=== PATIENT | male | born 1960 | race Caucasian/White ===

== ENCOUNTER 2021-02-25 12:04 | Emergency (ER) | payer OTHER ==
[2021-02-25 12:23] VITALS: BP 134/84; PULSE 80; TEMP 98.9; BMI 19.8
== END 2021-02-25 12:36 | disposition home or self-care (01) ==
LOC: FER 12:04
DX: H57.12 Ocular pain, left eye (principal)
CPT/HCPCS: 99284-25

== ENCOUNTER 2021-03-11 14:16 | Emergency (ER) | payer OTHER ==
[2021-03-11 14:31] VITALS: BP 118/76; PULSE 77; TEMP 98.6; BMI 19.8
[2021-03-11] MEDS ORDERED: TETRACAINE 0.5% OPHTH SOLN 2 ML BOTTLE ONE (15:00)
[2021-03-11] MEDS ORDERED: FLUORESCEIN NA 1 EA STRIP ONE (15:00)
[2021-03-11] MEDS ORDERED: TETRACAINE 0.5% HCL 0.6ML DROPPER.BOTTLE OD ONE (15:20)
[2021-03-11] MEDS ORDERED: FLUORESCEIN NA 1 EA STRIP OD ONE (15:20)
== END 2021-03-11 15:25 | disposition home or self-care (01) ==
LOC: FER 14:16
DX: H10.31 Unspecified acute conjunctivitis, right eye (principal)
CPT/HCPCS: 99283-25

== ENCOUNTER 2021-03-31 17:35 | Emergency (ER) | payer OTHER ==
[2021-03-31 17:48] VITALS: BP 122/71; PULSE 96; TEMP 99; BMI 19.8
[2021-03-31] MEDS ORDERED: ACETAMINOPHEN 500 MG TABLET (FP) PO ONE (18:07)
[2021-03-31] MEDS ORDERED: ONDANSETRON 4 MG TABLET PO PRN (18:07)
[2021-03-31] MEDS ORDERED: FAMOTIDINE 40 MG/5 ML ORAL SUSPENSION PO ONE (18:08)
[2021-03-31] MEDS ORDERED: ONDANSETRON 4 MG TABLET PO ONE (18:10)
[2021-03-31] MEDS ORDERED: ONDANSETRON *ODT* 4 MG TABLET ONE (18:11)
[2021-03-31] MEDS ORDERED: FAMOTIDINE 20 MG TABLET ONE (18:11)
[2021-03-31] MEDS ORDERED: ACETAMINOPHEN 325 MG TABLET (FP) ONE (18:11)
[2021-03-31] MEDS ORDERED: LORATADINE 10 MG TABLET ONE (18:16)
[2021-03-31] MEDS ORDERED: LORATADINE 10 MG TABLET PO ONE (18:16)
== END 2021-03-31 18:50 | disposition home or self-care (01) ==
LOC: FER 17:35
DX: J30.2 Other seasonal allergic rhinitis (principal); M79.10 Myalgia, unspecified site
CPT/HCPCS: 99284-25

== ENCOUNTER 2021-04-25 16:42 | Emergency (ER) | payer OTHER ==
[2021-04-25 17:01] VITALS: BP 110/71; PULSE 88; TEMP 99.1; BMI 19.8
[2021-04-25] MEDS ORDERED: predniSONE 20 MG TABLET (UD) PO ONE (17:04)
[2021-04-25] MEDS ORDERED: predniSONE 20 MG TABLET (UD) ONE (17:09)
== END 2021-04-25 17:18 | disposition home or self-care (01) ==
LOC: FER 16:42
DX: R21 Rash and other nonspecific skin eruption (principal); L23.7 Allergic contact dermatitis due to plants, except food
CPT/HCPCS: 99283-25

== ENCOUNTER 2021-05-31 10:41 | Emergency (ER) | payer OTHER ==
[2021-05-31 10:56] VITALS: BP 125/82; PULSE 82; TEMP 97.9; BMI 19.8
[2021-05-31] MEDS ORDERED: ACETAMINOPHEN 500 MG TABLET (FP) PO ONE (11:06)
[2021-05-31] MEDS ORDERED: ACETAMINOPHEN 325 MG TABLET (FP) ONE (11:09)
[2021-05-31] MEDS ORDERED: LIDOCAINE 5% TOPICAL PATCH TP ONE (12:06)
[2021-05-31] MEDS ORDERED: LIDOCAINE 5% TOPICAL PATCH ONE (12:09)
[2021-05-31] MEDS ORDERED: LIDOCAINE PATCH REMOVAL MC SCH (22:00)
== END 2021-05-31 12:18 | disposition home or self-care (01) ==
LOC: FER 10:41
DX: M54.2 Cervicalgia (principal)
CPT/HCPCS: 99283-25

== ENCOUNTER 2021-06-14 09:15 | Emergency (ER) | payer OTHER ==
[2021-06-14 09:28] VITALS: BP 137/84; PULSE 89; TEMP 98.1; BMI 19.8
[2021-06-14] MEDS ORDERED: chlordiazePOXIDE HCL 25 MG CAPSULE PO ONE (09:37)
[2021-06-14] MEDS ORDERED: chlordiazePOXIDE HCL 25 MG CAPSULE ONE (09:49)
== END 2021-06-14 10:42 | disposition home or self-care (01) ==
LOC: FER 09:15
DX: F13.239 Sedative, hypnotic or anxiolytic dependence with withdrawal, unspecified (principal)
CPT/HCPCS: 99283-25

== ENCOUNTER 2021-07-15 10:35 | Emergency (ER) | payer OTHER ==
[2021-07-15 10:41] VITALS: BP 125/87; PULSE 90; TEMP 98; BMI 19.8
[2021-07-15] MEDS ORDERED: LORazepam 2 MG TABLET PO ONE (10:54)
== END 2021-07-15 11:35 | disposition home or self-care (01) ==
LOC: FER 10:35
DX: R25.1 Tremor, unspecified (principal); Z76.0 Encounter for issue of repeat prescription
CPT/HCPCS: 99281-25

== ENCOUNTER 2021-08-02 11:35 | Emergency (ER) | payer OTHER ==
[2021-08-02 11:42] VITALS: TEMP 98; BMI 20.3
[2021-08-02] MEDS ORDERED: ONDANSETRON *ODT* 4 MG TABLET SL ONE (12:14)
[2021-08-02] MEDS ORDERED: ONDANSETRON *ODT* 4 MG TABLET ONE (12:17)
[2021-08-02 14:09] VITALS: BP 149/67; PULSE 74
== END 2021-08-02 14:09 | disposition home or self-care (01) ==
LOC: FER 11:35
DX: R11.0 Nausea (principal); T50.995A Adverse effect of other drugs, medicaments and biological substances, initial encounter
CPT/HCPCS: 93005; 99283-25; Q0162

== ENCOUNTER 2021-08-14 09:22 | Emergency (ER) | payer OTHER ==
[2021-08-14 09:25] VITALS: TEMP 98.1; BMI 20.3
[2021-08-14] MEDS ORDERED: LORazepam 2 MG TABLET PO ONE (09:44)
[2021-08-14] MEDS ORDERED: LORazepam 0.5 MG TABLET ONE (09:47)
[2021-08-14] MEDS ORDERED: LOCK ITEM NR ONE (09:50)
[2021-08-14 09:56] VITALS: BP 144/92; PULSE 80
== END 2021-08-14 09:56 | disposition home or self-care (01) ==
LOC: FER 09:22
DX: F13.239 Sedative, hypnotic or anxiolytic dependence with withdrawal, unspecified (principal)
CPT/HCPCS: 99283-25

== ENCOUNTER 2021-08-15 09:16 | Emergency (ER) | payer OTHER ==
[2021-08-15 09:25] VITALS: BP 140/89; PULSE 96; TEMP 98.1; BMI 20.3
[2021-08-15] MEDS ORDERED: LORazepam 2 MG TABLET PO ONE (09:57)
[2021-08-15] MEDS ORDERED: LORazepam 0.5 MG TABLET ONE (10:04)
== END 2021-08-15 10:13 | disposition home or self-care (01) ==
LOC: FER 09:16
DX: R25.1 Tremor, unspecified (principal); F13.239 Sedative, hypnotic or anxiolytic dependence with withdrawal, unspecified
CPT/HCPCS: 99283-25

== ENCOUNTER 2021-09-01 15:38 | Emergency (ER) | payer OTHER ==
[2021-09-01 15:51] VITALS: BP 129/87; PULSE 91; TEMP 98.8; BMI 20.3
[2021-09-01] MEDS ORDERED: METHOCARBAMOL 500 MG TABLET PO ONE (16:28)
[2021-09-01] MEDS ORDERED: LIDOCAINE 5% TOPICAL PATCH TP ONE (16:28)
[2021-09-01] MEDS ORDERED: LIDOCAINE 5% TOPICAL PATCH ONE (16:34)
[2021-09-01] MEDS ORDERED: METHOCARBAMOL 500 MG TABLET ONE (16:34)
[2021-09-01] MEDS ORDERED: LIDOCAINE PATCH REMOVAL MC SCH (22:00)
== END 2021-09-01 16:52 | disposition home or self-care (01) ==
LOC: FER 15:38
DX: M54.2 Cervicalgia (principal)
CPT/HCPCS: 99283-25

== ENCOUNTER 2021-09-16 08:47 | Emergency (ER) | payer OTHER ==
[2021-09-16] MEDS ORDERED: LORazepam 2 MG TABLET PO ONE (08:51)
[2021-09-16 08:59] VITALS: BP 142/94; PULSE 72; TEMP 98.1; BMI 20.3
[2021-09-16] MEDS ORDERED: LORazepam 0.5 MG TABLET ONE (09:06)
== END 2021-09-16 09:09 | disposition home or self-care (01) ==
LOC: FER 08:47
DX: F13.20 Sedative, hypnotic or anxiolytic dependence, uncomplicated (principal)
CPT/HCPCS: 99283-25

== ENCOUNTER 2021-09-18 07:55 | Emergency (ER) | payer OTHER ==
[2021-09-18 07:59] VITALS: BP 140/87; PULSE 89; TEMP 97.6; BMI 20.3
[2021-09-18] MEDS ORDERED: LORazepam 1 MG TABLET PO ONE (08:09)
[2021-09-18] MEDS ORDERED: LORazepam 0.5 MG TABLET ONE (08:10)
== END 2021-09-18 08:50 | disposition home or self-care (01) ==
LOC: FER 07:55
DX: F13.239 Sedative, hypnotic or anxiolytic dependence with withdrawal, unspecified (principal); R11.0 Nausea; R25.1 Tremor, unspecified
CPT/HCPCS: 99283-25

== ENCOUNTER 2021-09-26 11:06 | Emergency (ER) | payer OTHER ==
[2021-09-26 11:22] VITALS: BP 127/89; PULSE 63; TEMP 97.9; BMI 19.8
[2021-09-26] MEDS ORDERED: CIPROFLOXACIN HCL 0.3% OPHTH 2.5ML BOTTLE ONE (11:23)
[2021-09-26] MEDS ORDERED: CIPROFLOXACIN HCL 0.3% OPHTH 2.5ML BOTTLE OS SCH (11:30)
== END 2021-09-26 11:38 | disposition home or self-care (01) ==
LOC: FER 11:06
DX: H10.32 Unspecified acute conjunctivitis, left eye (principal)
CPT/HCPCS: 99283-25

== ENCOUNTER 2021-10-05 09:57 | Emergency (ER) | payer OTHER ==
[2021-10-05] MEDS ORDERED: IBUPROFEN 600 MG TABLET (FP) PO ONE ×2 (10:05→10:08)
[2021-10-05 10:08] VITALS: BP 140/88; PULSE 85; TEMP 97.8; BMI 19.8
== END 2021-10-05 10:56 | disposition home or self-care (01) ==
LOC: FER 09:57
DX: M79.644 Pain in right finger(s) (principal)
CPT/HCPCS: 73130-TC-RT-FY; 99283-25

== ENCOUNTER 2021-10-20 17:15 | Emergency (ER) | payer OTHER ==
[2021-10-20 17:49] VITALS: BP 150/89; PULSE 74; TEMP 98.9; BMI 19.8
[2021-10-20] MEDS ORDERED: LORazepam 2 MG TABLET PO ONE (17:58)
[2021-10-20] MEDS ORDERED: LORazepam 0.5 MG TABLET ONE (18:13)
== END 2021-10-20 18:22 | disposition home or self-care (01) ==
LOC: FER 17:15
DX: G25.2 Other specified forms of tremor (principal); F41.9 Anxiety disorder, unspecified
CPT/HCPCS: 99283-25

== ENCOUNTER 2021-11-20 10:33 | Emergency (ER) | payer OTHER ==
[2021-11-20 10:59] VITALS: BP 130/71; PULSE 77; TEMP 98.3; BMI 19.8
[2021-11-20] MEDS ORDERED: TETRACAINE 0.5% HCL 0.6ML DROPPER.BOTTLE OU ONE (11:12)
[2021-11-20] MEDS ORDERED: TETRACAINE 0.5% OPHTH SOLN 2 ML BOTTLE ONE (11:15)
[2021-11-20] MEDS ORDERED: FLUORESCEIN NA 1 EA STRIP ONE (11:15)
== END 2021-11-20 11:54 | disposition home or self-care (01) ==
LOC: FER 10:33
DX: S05.02XA Injury of conjunctiva and corneal abrasion without foreign body, left eye, initial encounter (principal); H04.129 Dry eye syndrome of unspecified lacrimal gland; Y99.9 Unspecified external cause status
CPT/HCPCS: 99283-25

== ENCOUNTER 2021-12-29 09:37 | Emergency (ER) | payer OTHER ==
[2021-12-29 09:54] VITALS: BP 130/75; PULSE 87; TEMP 99.1; BMI 19.8
[2021-12-29] MEDS ORDERED: FAMOTIDINE 20 MG/50 ML IVPB 20 MG in PREMIX 50 IVPB ONE (10:00)
[2021-12-29] MEDS ORDERED: SODIUM CHLORIDE 0.9% 500 ML INFUS.BAG IV ONE (10:00)
[2021-12-29] MEDS ORDERED: ONDANSETRON 4 MG/2 ML VIAL IVPB ONE (10:00)
[2021-12-29] MEDS ORDERED: MAG HYDROX/AL HYDROX/SIMETH -MYLANTA- ORAL SUSPENSION PO ONE (10:00)
[2021-12-29] MEDS ORDERED: MAG HYDROX/AL HYDROX/SIMETH 30 ML UNIT-DOSE CUP ONE (10:04)
[2021-12-29] MEDS ORDERED: ONDANSETRON 4 MG/2 ML VIAL ONE (10:04)
[2021-12-29] MEDS ORDERED: FAMOTIDINE 20 MG/50 ML IVPB 20 MG/50 ML MG IVPB ONE (10:04)
[2021-12-29 10:51] LABS: ALBUMIN 4.1 g/dl (3.4-5.0); BILIRUBIN,TOTAL 2.3 mg/dl (0.2-1); CALCIUM 9.8 mg/dl (8.5-10); CREATININE 1.2 mg/dl (0.55-1.3); TOT PROT 7.1 g/dl (6.4-8.2)
[2021-12-29 11:51] LABS: HEMATOCRIT 43.6 % (35.4-49); HEMOGLOBIN 14.4 GM/dL (11.7-16.9); MCH 29.2 pg (25.7-33.7); MCHC 33.1 g/dl (32.0-35.9); MEAN CELL VOLUME 88.1 fl (80-96); MEAN PLT VOLUME 9.2 fl (7.5-11.1); PLATELET COUNT 177 10^3/uL (134-434); RBC 4.94 M/mm3 (4.00-5.60); RDW 14.6 % (11.9-15.9); WHITE BLOOD COUNT 7.4 K/mm3 (4.0-10.0)
== END 2021-12-29 12:46 | disposition home or self-care (01) ==
LOC: FER 09:37
PROC: 3E033NZ Introduction of Analgesics, Hypnotics, Sedatives into Peripheral Vein, Percutaneous Approach (ICD-10-PCS; principal; 2021-12-29)
PROC: 3E033GC Introduction of Other Therapeutic Substance into Peripheral Vein, Percutaneous Approach (ICD-10-PCS; 2021-12-29)
DX: R10.13 Epigastric pain (principal)
CPT/HCPCS: 36415; 71046-TC-FY; 80053; 81003; 83690; 84484; 85027; 93005; 96365; 96375; 99284-25

== ENCOUNTER 2022-01-18 08:38 | Emergency (ER) | payer OTHER ==
[2022-01-18] MEDS ORDERED: LORazepam 2 MG TABLET PO ONE (08:49)
[2022-01-18] MEDS ORDERED: LORazepam 0.5 MG TABLET ONE (08:50)
== END 2022-01-18 09:27 | disposition home or self-care (01) ==
LOC: FER 08:38
DX: R11.0 Nausea (principal); F13.239 Sedative, hypnotic or anxiolytic dependence with withdrawal, unspecified
CPT/HCPCS: 99281-25

== ENCOUNTER 2022-01-24 09:27 | Emergency (ER) | payer OTHER ==
[2022-01-24 09:43] VITALS: BP 143/79; PULSE 86; TEMP 98.6; BMI 19.8
[2022-01-24] MEDS ORDERED: LORATADINE 10 MG TABLET PO ONE (10:33)
[2022-01-24] MEDS ORDERED: FLUTICASONE PROP 0.05% 16 GM NASAL SPRAY NS ONE (10:34)
[2022-01-24] MEDS ORDERED: IBUPROFEN 400 MG TABLET (FP) PO ONE ×2 (10:34→10:55)
[2022-01-24] MEDS ORDERED: LORATADINE 10 MG TABLET ONE (10:55)
[2022-01-25 12:08] LABS: SARS-CoV-2 NAA Not Detected (Not Detected)
== END 2022-01-24 11:10 | disposition home or self-care (01) ==
LOC: FER 09:27
DX: R09.81 Nasal congestion (principal); R09.82 Postnasal drip
CPT/HCPCS: 71046-TC-FY; 99284-25; C9803; U0003; U0005

== ENCOUNTER 2022-02-08 16:00 | Emergency (ER) | payer OTHER ==
[2022-02-08 16:20] VITALS: TEMP 98.1; BMI 18.8
[2022-02-08] MEDS ORDERED: INDOMETHACIN 50 MG CAPSULE PO ONE (16:29)
[2022-02-08] MEDS ORDERED: INDOMETHACIN 25 MG CAPSULE ONE (16:41)
[2022-02-08 17:11] LABS: CALCIUM 9.9 mg/dl (8.5-10); CREATININE 1.2 mg/dl (0.55-1.3); URIC ACID 7.6 mg/dl (2.6-7.2)
[2022-02-08] MEDS ORDERED: CLINDAMYCIN 600MG PREMIX IVPB 600 MG/50 ML BAG IVPB ONE ×2 (17:36→17:42)
[2022-02-08] MEDS ORDERED: MAG HYDROX/AL HYDROX/SIMETH 30 ML UNIT-DOSE CUP PO ONE ×2 (17:48)
[2022-02-08] MEDS ORDERED: FAMOTIDINE 10 MG TABLET PO ONE (17:48)
[2022-02-08] MEDS ORDERED: MAG HYDROX/AL HYDROX/SIMETH 30 ML UNIT-DOSE CUP ONE (17:49)
[2022-02-08] MEDS ORDERED: FAMOTIDINE 20 MG TABLET ONE (17:49)
[2022-02-08] MEDS ORDERED: MAGNESIUM SULF 50% (8.12 MEQ/2 ML-1 GM VIAL) IVPB ONE (17:52)
[2022-02-08 18:07] LABS: ERYTHROCYTE SEDIMENTATION RATE 18 mm/hr (0-20)
[2022-02-08] MEDS ORDERED: MAGNESIUM 1GM/D5W - 1 GM/100 ML IVPB IVPB ONE (18:21)
[2022-02-08 18:31] VITALS: BP 130/88; PULSE 78
[2022-02-08 19:20] LABS: BASO % 0.8 % (0-2.0); EOS % 0.7 % (0-4.5); HEMATOCRIT 36.9 % (35.4-49); HEMOGLOBIN 12.8 GM/dL (11.7-16.9); LYMPH % 17.7 % (8-40); MCH 30.4 pg (25.7-33.7); MCHC 34.8 g/dl (32.0-35.9); MEAN CELL VOLUME 87.6 fl (80-96); MEAN PLT VOLUME 8.1 fl (7.5-11.1); MONO % 5.5 % (3.8-10.2); NEUT % 75.3 % (42.8-82.8); PLATELET COUNT 190 10^3/uL (134-434); RBC 4.22 M/mm3 (4.00-5.60); WHITE BLOOD COUNT 7.9 K/mm3 (4.0-10.0)
== END 2022-02-08 19:26 | disposition home or self-care (01) ==
LOC: FER 16:00
PROC: 3E03329 Introduction of Other Anti-infective into Peripheral Vein, Percutaneous Approach (ICD-10-PCS; principal; 2022-02-08)
PROC: 3E033GC Introduction of Other Therapeutic Substance into Peripheral Vein, Percutaneous Approach (ICD-10-PCS; 2022-02-08)
DX: L03.116 Cellulitis of left lower limb (principal); S90.32XA Contusion of left foot, initial encounter; W22.8XXA Striking against or struck by other objects, initial encounter
CPT/HCPCS: 36415; 73610-TC-LT-FY; 73630-TC-LT; 80048; 84550; 85025; 85651; 86140; 99284-25

== ENCOUNTER 2022-03-07 17:29 | Emergency (ER) | payer OTHER ==
[2022-03-07 17:43] VITALS: BP 128/92; PULSE 85; TEMP 98.6
== END 2022-03-07 18:09 | disposition home or self-care (01) ==
LOC: FER 17:29
DX: H11.31 Conjunctival hemorrhage, right eye (principal)
CPT/HCPCS: 99281-25

== ENCOUNTER 2022-03-21 16:30 | Emergency (ER) | payer OTHER ==
[2022-03-21] MEDS ORDERED: predniSONE 20 MG TABLET (UD) PO ONE (16:55)
[2022-03-21] MEDS ORDERED: DIPHTH,PERTUSS(ACELL),TET 0.5 ML DISP.SYRIN IM ONE (16:56)
[2022-03-21] MEDS ORDERED: predniSONE 20 MG TABLET (UD) ONE (16:58)
[2022-03-21 17:01] VITALS: BP 126/67; PULSE 77; TEMP 98.7; BMI 16.4
== END 2022-03-21 17:07 | disposition home or self-care (01) ==
LOC: FER 16:30
PROC: 3E0234Z Introduction of Serum, Toxoid and Vaccine into Muscle, Percutaneous Approach (ICD-10-PCS; principal; 2022-03-21)
DX: R21 Rash and other nonspecific skin eruption (principal)
CPT/HCPCS: 99284-25

== ENCOUNTER 2022-03-25 14:15 | Emergency (ER) | payer OTHER ==
[2022-03-25 14:35] VITALS: BP 122/72; PULSE 84; TEMP 99.1; BMI 16.4
== END 2022-03-25 15:33 | disposition home or self-care (01) ==
LOC: FER 14:15
DX: L23.7 Allergic contact dermatitis due to plants, except food (principal); L73.1 Pseudofolliculitis barbae
CPT/HCPCS: 81003; 81015; 99283-25

== ENCOUNTER 2022-04-17 16:16 | Emergency (ER) | payer OTHER ==
[2022-04-17 16:34] VITALS: BP 135/82; PULSE 79; TEMP 98; BMI 19.8
[2022-04-17] MEDS ORDERED: LORazepam 1 MG TABLET PO ONE (16:35)
[2022-04-17] MEDS ORDERED: LORazepam 0.5 MG TABLET ONE (17:05)
[2022-04-17] MEDS ORDERED: ACETAMINOPHEN 325 MG TABLET (FP) PO ONE (17:13)
[2022-04-17] MEDS ORDERED: ACETAMINOPHEN 325 MG TABLET (FP) ONE (17:18)
== END 2022-04-17 17:23 | disposition home or self-care (01) ==
LOC: FER 16:16
DX: F13.20 Sedative, hypnotic or anxiolytic dependence, uncomplicated (principal)
CPT/HCPCS: 99283-25

== ENCOUNTER 2022-04-22 09:56 | Emergency (ER) | payer OTHER ==
[2022-04-22] MEDS ORDERED: LORazepam 2 MG TABLET PO ONE (10:09)
[2022-04-22] MEDS ORDERED: ACETAMINOPHEN 500 MG TABLET (FP) PO ONE (10:09)
[2022-04-22] MEDS ORDERED: LORazepam 0.5 MG TABLET ONE (10:13)
[2022-04-22] MEDS ORDERED: ACETAMINOPHEN 500 MG TABLET (FP) ONE (10:14)
[2022-04-22 10:24] VITALS: BP 135/84; PULSE 80; TEMP 98.8; BMI 19.8
== END 2022-04-22 10:23 | disposition home or self-care (01) ==
LOC: FER 09:56
DX: R25.1 Tremor, unspecified (principal); Z76.0 Encounter for issue of repeat prescription
CPT/HCPCS: 99282-25

== ENCOUNTER 2022-05-21 11:11 | Emergency (ER) | payer OTHER ==
[2022-05-21 12:09] VITALS: BP 139/88; PULSE 88; TEMP 98.7; BMI 19.8
[2022-05-21] MEDS ORDERED: INDOMETHACIN 50 MG CAPSULE PO ONE (12:22)
[2022-05-21] MEDS ORDERED: INDOMETHACIN 25 MG CAPSULE ONE (12:27)
== END 2022-05-21 12:45 | disposition home or self-care (01) ==
LOC: FER 11:11
DX: M10.041 Idiopathic gout, right hand (principal)
CPT/HCPCS: 99283-25

== ENCOUNTER 2022-06-04 09:36 | Emergency (ER) | payer OTHER ==
[2022-06-04 10:04] VITALS: BP 141/93; PULSE 77; RESP 20; TEMP 98.2; BMI 19.8
== END 2022-06-04 10:46 | disposition home or self-care (01) ==
LOC: FER 09:36
DX: L74.0 Miliaria rubra (principal)
CPT/HCPCS: 99281-25

== ENCOUNTER 2022-06-05 15:51 | Emergency (ER) | payer OTHER ==
[2022-06-05] MEDS ORDERED: LORATADINE 10 MG TABLET PO ONE (16:06)
[2022-06-05] MEDS ORDERED: IBUPROFEN 600 MG TABLET (FP) PO ONE ×2 (16:06→16:12)
[2022-06-05] MEDS ORDERED: DEXAMETHASONE 4 MG TABLET (FP) PO ONE (16:06)
[2022-06-05 16:10] VITALS: BP 144/97; PULSE 79; RESP 16; TEMP 98; BMI 19.8
[2022-06-05] MEDS ORDERED: DEXAMETHASONE 4 MG TABLET (FP) ONE (16:13)
[2022-06-05] MEDS ORDERED: LORATADINE 10 MG TABLET ONE (16:13)
== END 2022-06-05 16:34 | disposition home or self-care (01) ==
LOC: FER 15:51
DX: T63.441A Toxic effect of venom of bees, accidental (unintentional), initial encounter (principal)
CPT/HCPCS: 99283-25

== ENCOUNTER 2022-06-10 10:07 | Emergency (ER) | payer OTHER ==
[2022-06-10 10:16] VITALS: BP 132/96; PULSE 87; RESP 18; TEMP 97.8; BMI 19.8
[2022-06-10] MEDS ORDERED: FLUORESCEIN NA 1 EA STRIP OD ONE (10:26)
[2022-06-10] MEDS ORDERED: TETRACAINE 0.5% OPHTH SOLN 2 ML BOTTLE OD ONE (10:27)
[2022-06-10] MEDS ORDERED: TETRACAINE 0.5% OPHTH SOLN 2 ML BOTTLE ONE (10:28)
[2022-06-10] MEDS ORDERED: FLUORESCEIN NA 1 EA STRIP ONE (10:28)
[2022-06-10] MEDS ORDERED: CIPROFLOXACIN 0.3% EYE DROPS 5 ML BOTTLE OS ONE (10:45)
[2022-06-10] MEDS ORDERED: CIPROFLOXACIN HCL 0.3% OPHTH 2.5ML BOTTLE ONE (10:46)
[2022-06-11] MEDS ORDERED: CIPROFLOXACIN 0.3% EYE DROPS 5 ML BOTTLE OS ONE (10:46)
== END 2022-06-10 10:53 | disposition home or self-care (01) ==
LOC: FER 10:07
DX: H57.89 Other specified disorders of eye and adnexa (principal)
CPT/HCPCS: 99283-25

== ENCOUNTER 2022-06-11 15:47 | Emergency (ER) | payer OTHER ==
[2022-06-11] MEDS ORDERED: TETRACAINE 0.5% OPHTH SOLN 2 ML BOTTLE ONE (15:49)
[2022-06-11 15:58] VITALS: BP 126/89; PULSE 79; RESP 16; TEMP 98.3; BMI 19.8
== END 2022-06-11 16:12 | disposition home or self-care (01) ==
LOC: FER 15:47
DX: Z00.00 Encounter for general adult medical examination without abnormal findings (principal)
CPT/HCPCS: 99281-25

== ENCOUNTER 2022-07-16 11:10 | Emergency (ER) | payer OTHER ==
[2022-07-16 11:30] VITALS: BP 136/78; PULSE 73; RESP 16; TEMP 98.3; BMI 19.8
== END 2022-07-16 12:08 | disposition home or self-care (01) ==
LOC: FER 11:10
DX: H57.89 Other specified disorders of eye and adnexa (principal)
CPT/HCPCS: 99283-25

== ENCOUNTER 2022-08-12 10:21 | Emergency (ER) | payer OTHER ==
[2022-08-12] MEDS ORDERED: PANTOPRAZOLE 20 MG TABLET PO ONE (10:42)
[2022-08-12 10:51] VITALS: BP 144/97; PULSE 86; RESP 16; TEMP 97.4; BMI 19.8
[2022-08-12] MEDS ORDERED: PANTOPRAZOLE 40 MG TABLET PO ONE ×2 (10:51)
[2022-08-12 14:02] LABS: THROAT:GRP A STREP NOT DETECTED (NOTDETECTED)
== END 2022-08-12 11:15 | disposition home or self-care (01) ==
LOC: FER 10:21 → SUPCPDRO 10:21 → FER 11:15
DX: J02.9 Acute pharyngitis, unspecified (principal); R09.81 Nasal congestion; R14.1 Gas pain
CPT/HCPCS: 0241U-QW; 87651; 99283-25

== ENCOUNTER 2022-09-05 15:38 | Emergency (ER) | payer OTHER ==
[2022-09-05 15:46] VITALS: BP 126/80; PULSE 77; RESP 20; TEMP 98.6; BMI 19.8
[2022-09-05] MEDS ORDERED: FLUORESCEIN NA 1 EA STRIP ONE (15:49)
[2022-09-05] MEDS ORDERED: TETRACAINE 0.5% OPHTH SOLN 2 ML BOTTLE ONE (15:49)
== END 2022-09-05 16:35 | disposition home or self-care (01) ==
LOC: FER 15:38
DX: B34.9 Viral infection, unspecified (principal)
CPT/HCPCS: 0241U-QW; 99283-25

== ENCOUNTER 2022-10-26 15:22 | Emergency (ER) | payer OTHER ==
[2022-10-26] MEDS ORDERED: TETRACAINE 0.5% OPHTH SOLN 2 ML BOTTLE ONE (15:33)
[2022-10-26] MEDS ORDERED: FLUORESCEIN NA 1 EA STRIP ONE (15:33)
[2022-10-26 15:34] VITALS: BP 133/88; PULSE 98; RESP 18; TEMP 97.8; BMI 20.3
[2022-10-26] MEDS ORDERED: MOXIFLOXACIN HCL 0.5% OPHTHALMIC 3 ML BOTTLE OS SCH (16:00)
== END 2022-10-26 16:22 | disposition home or self-care (01) ==
LOC: FER 15:22
DX: H16.002 Unspecified corneal ulcer, left eye (principal)
CPT/HCPCS: 99283-25

== ENCOUNTER 2022-11-02 11:36 | Emergency (ER) | payer OTHER ==
[2022-11-02 12:34] VITALS: BP 145/90; PULSE 62; RESP 18; TEMP 97.9; BMI 19.8
[2022-11-02] MEDS ORDERED: TETRACAINE 0.5% HCL 0.6ML DROPPER.BOTTLE OS ONE (12:56)
[2022-11-02] MEDS ORDERED: TETRACAINE 0.5% OPHTH SOLN 2 ML BOTTLE ONE (12:56)
[2022-11-02] MEDS ORDERED: FLUORESCEIN NA 1 EA STRIP ONE (12:56)
[2022-11-02] MEDS ORDERED: FLUORESCEIN NA 1 EA STRIP OS ONE (12:56)
== END 2022-11-02 13:33 | disposition home or self-care (01) ==
LOC: FER 11:36 → SUPCPDRO 11:36 → FER 13:33
DX: H53.142 Visual discomfort, left eye (principal)
CPT/HCPCS: 99283-25

== ENCOUNTER 2022-11-18 12:35 | Emergency (ER) | payer OTHER ==
[2022-11-18] MEDS ORDERED: FLUORESCEIN NA 1 EA STRIP OS ONE (12:47)
[2022-11-18] MEDS ORDERED: FLUORESCEIN NA 1 EA STRIP ONE (12:47)
[2022-11-18] MEDS ORDERED: TETRACAINE 0.5% OPHTH SOLN 2 ML BOTTLE ONE (12:47)
[2022-11-18 12:50] VITALS: BP 159/89; PULSE 79; RESP 16; TEMP 98.3; BMI 19.8
== END 2022-11-18 13:04 | disposition home or self-care (01) ==
LOC: FER 12:35
DX: H57.89 Other specified disorders of eye and adnexa (principal)
CPT/HCPCS: 99283-25

== ENCOUNTER 2023-01-02 09:51 | Emergency (ER) | payer OTHER ==
[2023-01-02 10:09] VITALS: BP 146/88; PULSE 84; RESP 20; TEMP 98.2; BMI 19.8
[2023-01-02] MEDS ORDERED: MAG HYDROX/AL HYDROX/SIMETH 30 ML UNIT-DOSE CUP PO ONE (10:31)
[2023-01-02] MEDS ORDERED: FAMOTIDINE 20 MG TABLET PO ONE (10:31)
[2023-01-02] MEDS ORDERED: SUCRALFATE 1 GM/10 ML UNIT DOSE CUPS PO ONE (10:31)
[2023-01-02] MEDS ORDERED: PANTOPRAZOLE 40 MG TABLET PO ONE ×2 (10:31→10:34)
[2023-01-02] MEDS ORDERED: FAMOTIDINE 20 MG TABLET ONE (10:34)
[2023-01-02] MEDS ORDERED: SUCRALFATE 1 GM/10 ML UNIT DOSE CUPS ONE (10:34)
[2023-01-02] MEDS ORDERED: MAG HYDROX/AL HYDROX/SIMETH 30 ML UNIT-DOSE CUP ONE (10:34)
== END 2023-01-02 11:42 | disposition home or self-care (01) ==
LOC: FER 09:51
DX: R10.13 Epigastric pain (principal)
CPT/HCPCS: 99283-25

== ENCOUNTER 2023-02-01 11:25 | Emergency (ER) | payer OTHER ==
[2023-02-01 11:34] VITALS: BP 140/88; PULSE 75; RESP 20; TEMP 97.6; BMI 19.8
== END 2023-02-01 12:54 | disposition home or self-care (01) ==
LOC: FER 11:25
DX: R14.0 Abdominal distension (gaseous) (principal)
CPT/HCPCS: 99282-25

== ENCOUNTER 2023-03-07 12:33 | Emergency (ER) | payer OTHER ==
[2023-03-07 12:43] VITALS: BP 136/83; PULSE 85; RESP 16; TEMP 97.7; BMI 19.8
[2023-03-07] MEDS ORDERED: TETRACAINE 0.5% HCL 0.6ML DROPPER.BOTTLE OS ONE (12:57)
[2023-03-07] MEDS ORDERED: FLUORESCEIN NA 1 EA STRIP OS ONE (12:58)
[2023-03-07] MEDS ORDERED: FLUORESCEIN NA 1 EA STRIP ONE (12:58)
[2023-03-07] MEDS ORDERED: TETRACAINE 0.5% OPHTH SOLN 2 ML BOTTLE ONE (12:58)
[2023-03-07] MEDS ORDERED: CIPROFLOXACIN HCL 0.3% OPHTH 2.5ML BOTTLE ONE (13:10)
[2023-03-07] MEDS ORDERED: CIPROFLOXACIN 0.3% EYE DROPS 5 ML BOTTLE OS SCH (13:15)
== END 2023-03-07 13:20 | disposition home or self-care (01) ==
LOC: FER 12:33
DX: H10.32 Unspecified acute conjunctivitis, left eye (principal)
CPT/HCPCS: 99283-25

== ENCOUNTER 2023-04-17 10:02 | Emergency (ER) | payer OTHER ==
[2023-04-17 10:24] VITALS: BP 135/81; PULSE 87; RESP 20; TEMP 97.9; BMI 19.8
[2023-04-17] MEDS ORDERED: NAPROXEN 500 MG TABLET PO ONE (10:30)
[2023-04-17] MEDS ORDERED: NAPROXEN 500 MG TABLET ONE (10:33)
== END 2023-04-17 10:59 | disposition home or self-care (01) ==
LOC: FER 10:02
DX: M25.461 Effusion, right knee (principal); M70.51 Other bursitis of knee, right knee; M21.611 Bunion of right foot; M25.561 Pain in right knee; M79.674 Pain in right toe(s)
CPT/HCPCS: 99283-25

== ENCOUNTER 2023-05-01 15:42 | Emergency (ER) | payer OTHER ==
[2023-05-01 15:59] VITALS: BP 133/79; PULSE 89; RESP 16; TEMP 97.7; BMI 19.8
[2023-05-01] MEDS ORDERED: TETRACAINE 0.5% HCL 0.6ML DROPPER.BOTTLE OD ONE (16:27)
[2023-05-01] MEDS ORDERED: FLUORESCEIN NA 1 EA STRIP OD ONE (16:27)
[2023-05-01] MEDS ORDERED: TETRACAINE 0.5% OPHTH SOLN 2 ML BOTTLE ONE (16:27)
[2023-05-01] MEDS ORDERED: FLUORESCEIN NA 1 EA STRIP ONE (16:28)
== END 2023-05-01 17:02 | disposition home or self-care (01) ==
LOC: FER 15:42 → SUPCPDRO 15:42 → FER 17:02
DX: H57.89 Other specified disorders of eye and adnexa (principal); S05.02XA Injury of conjunctiva and corneal abrasion without foreign body, left eye, initial encounter; X58.XXXA Exposure to other specified factors, initial encounter
CPT/HCPCS: 99283-25

== ENCOUNTER 2023-05-04 12:44 | Emergency (ER) | payer OTHER ==
[2023-05-04] MEDS ORDERED: ACETAMINOPHEN 325 MG TABLET (FP) PO ONE (12:50)
[2023-05-04 12:57] VITALS: BP 133/85; PULSE 83; RESP 16; TEMP 98.3; BMI 19.8
[2023-05-04] MEDS ORDERED: ACETAMINOPHEN 325 MG TABLET (FP) ONE (13:08)
== END 2023-05-04 13:11 | disposition home or self-care (01) ==
LOC: FER 12:44
DX: H57.89 Other specified disorders of eye and adnexa (principal); H20.9 Unspecified iridocyclitis
CPT/HCPCS: 99283-25

== ENCOUNTER 2023-05-07 15:28 | Emergency (ER) | payer OTHER ==
[2023-05-07 15:39] VITALS: BP 132/83; PULSE 103; RESP 18; TEMP 98.8; BMI 19.8
== END 2023-05-07 16:04 | disposition home or self-care (01) ==
LOC: FER 15:28
DX: R21 Rash and other nonspecific skin eruption (principal); L29.9 Pruritus, unspecified; B02.8 Zoster with other complications
CPT/HCPCS: 99283-25

== ENCOUNTER 2023-05-20 08:39 | Emergency (ER) | payer OTHER ==
[2023-05-20 08:57] VITALS: BP 129/83; PULSE 70; RESP 18; TEMP 98.5; BMI 19.8
[2023-05-20] MEDS ORDERED: LORazepam 1 MG TABLET PO ONE (09:05)
[2023-05-20] MEDS ORDERED: LORazepam 0.5 MG TABLET ONE (09:07)
== END 2023-05-20 09:25 | disposition home or self-care (01) ==
LOC: FER 08:39
DX: G25.0 Essential tremor (principal)
CPT/HCPCS: 99283-25

== ENCOUNTER 2023-06-09 15:10 | Emergency (ER) | payer OTHER ==
[2023-06-09 15:21] VITALS: BP 126/76; PULSE 90; RESP 18; TEMP 98.3; BMI 19.8
== END 2023-06-09 16:18 | disposition home or self-care (01) ==
LOC: FER 15:10
DX: R07.0 Pain in throat (principal); R09.82 Postnasal drip; R05.9 Cough, unspecified
CPT/HCPCS: 99282-25

== ENCOUNTER 2023-07-19 14:48 | Emergency (ER) | payer OTHER ==
[2023-07-19] MEDS ORDERED: LORazepam 2 MG TABLET PO ONE (15:02)
[2023-07-19 15:03] VITALS: BP 140/95; PULSE 86; RESP 18; TEMP 99.1; BMI 19.8
[2023-07-19] MEDS ORDERED: LORazepam 0.5 MG TABLET ONE (15:08)
== END 2023-07-19 15:16 | disposition home or self-care (01) ==
LOC: FER 14:48
DX: Z76.0 Encounter for issue of repeat prescription (principal)
CPT/HCPCS: 99281-25

== ENCOUNTER 2023-10-12 10:51 | Emergency (ER) | payer OTHER ==
[2023-10-12] MEDS ORDERED: LORazepam 2 MG TABLET PO ONE (11:00)
[2023-10-12 11:02] VITALS: BP 142/79; PULSE 79; RESP 16; TEMP 97.7; BMI 19.8
[2023-10-12] MEDS ORDERED: LORazepam 0.5 MG TABLET ONE (11:07)
== END 2023-10-12 11:45 | disposition home or self-care (01) ==
LOC: FER 10:51
DX: R25.1 Tremor, unspecified (principal)
CPT/HCPCS: 99283-25

== ENCOUNTER 2023-12-13 09:42 | Emergency (ER) | payer OTHER ==
[2023-12-13] MEDS ORDERED: LORazepam 2 MG TABLET PO ONE (10:08)
[2023-12-13 10:18] VITALS: BP 135/88; PULSE 77; RESP 18; TEMP 98.6; BMI 19.8
[2023-12-13] MEDS ORDERED: LORazepam 0.5 MG TABLET ONE (10:27)
== END 2023-12-13 10:33 | disposition home or self-care (01) ==
LOC: FER 09:42
DX: F13.239 Sedative, hypnotic or anxiolytic dependence with withdrawal, unspecified (principal); R25.1 Tremor, unspecified
CPT/HCPCS: 99283-25

== ENCOUNTER 2024-04-01 10:28 | Emergency (ER) | payer OTHER ==
[2024-04-01 10:39] VITALS: BP 133/90; PULSE 84; RESP 16; TEMP 98; BMI 19.8
== END 2024-04-01 10:48 | disposition home or self-care (01) ==
LOC: FER 10:28
DX: S90.561A Insect bite (nonvenomous), right ankle, initial encounter (principal); S90.562A Insect bite (nonvenomous), left ankle, initial encounter; W57.XXXA Bitten or stung by nonvenomous insect and other nonvenomous arthropods, initial encounter
CPT/HCPCS: 99283-25

== ENCOUNTER 2024-04-05 10:30 | Emergency (ER) | payer OTHER ==
[2024-04-05 11:04] VITALS: BP 129/81; PULSE 83; RESP 20; TEMP 98.2; BMI 19.8
[2024-04-05] MEDS: INDOMETHACIN 25 MG CAPSULE PO ONE (11:34)
[2024-04-05] MEDS ORDERED: INDOMETHACIN 25 MG CAPSULE ONE (11:34)
== END 2024-04-05 12:08 | disposition home or self-care (01) ==
LOC: FER 10:30
DX: M10.9 Gout, unspecified (principal); M25.48 Effusion, other site; Y99.0 Civilian activity done for income or pay
CPT/HCPCS: 99283-25

== ENCOUNTER 2024-05-26 13:28 | Emergency (ER) | payer OTHER ==
[2024-05-26 13:42] VITALS: BP 136/91; PULSE 86; RESP 16; TEMP 98.2; BMI 19.0
== END 2024-05-26 14:00 | disposition left against medical advice (07) ==
LOC: FER 13:28
DX: R21 Rash and other nonspecific skin eruption (principal)
CPT/HCPCS: 99281-25

== ENCOUNTER 2024-06-02 09:46 | Emergency (ER) | payer OTHER ==
[2024-06-02] MEDS: TETRACAINE 0.5% OPHTH SOLN 2 ML BOTTLE OD ONE (09:53)
[2024-06-02] MEDS: FLUORESCEIN NA 1 EA STRIP OD ONE (09:53)
[2024-06-02 10:01] VITALS: BP 137/82; PULSE 74; RESP 18; TEMP 97.6; BMI 19.8
[2024-06-02] MEDS ORDERED: CIPROFLOXACIN 0.3% EYE DROPS 5 ML BOTTLE ONE (10:17)
[2024-06-02] MEDS: CIPROFLOXACIN 0.3% EYE DROPS 5 ML BOTTLE OD ONE (10:20)
== END 2024-06-02 10:25 | disposition home or self-care (01) ==
LOC: FER 09:46
DX: S05.01XA Injury of conjunctiva and corneal abrasion without foreign body, right eye, initial encounter (principal); H57.11 Ocular pain, right eye; W20.8XXA Other cause of strike by thrown, projected or falling object, initial encounter
CPT/HCPCS: 99283-25

== ENCOUNTER 2024-06-19 13:02 | Emergency (ER) | payer OTHER ==
[2024-06-19 13:15] VITALS: BP 148/91; PULSE 86; RESP 18; TEMP 98.1; BMI 19.8
[2024-06-19] MEDS ORDERED: FLUORESCEIN NA 1 EA STRIP ONE (13:31)
[2024-06-19] MEDS ORDERED: METOCLOPRAMIDE HCL 10 MG TABLET (FP) PO ONE (14:27)
[2024-06-19] MEDS ORDERED: KETOROLAC TROMETHAMINE 15 MG/ML VIAL ONE (14:28)
[2024-06-19] MEDS: METOCLOPRAMIDE HCL 10 MG TABLET (FP) PO ONE (14:30)
[2024-06-19] MEDS: KETOROLAC TROMETHAMINE 15 MG/ML VIAL IM ONE (14:30)
[2024-06-19] MEDS: KETOROLAC TROMETHAMINE 30 MG/1 ML VIAL IVPUSH ONE (14:52)
== END 2024-06-19 15:05 | disposition home or self-care (01) ==
LOC: FER 13:02
PROC: 3E0133Z Introduction of Anti-inflammatory into Subcutaneous Tissue, Percutaneous Approach (ICD-10-PCS; principal; 2024-06-19)
DX: G44.209 Tension-type headache, unspecified, not intractable (principal)
CPT/HCPCS: 99284-25

== ENCOUNTER 2024-06-28 10:31 | Emergency (ER) | payer OTHER ==
[2024-06-28] MEDS ORDERED: IBUPROFEN 400 MG TABLET (FP) PO ONE (11:00)
[2024-06-28] MEDS: IBUPROFEN 400 MG TABLET (FP) PO ONE (11:02)
[2024-06-28 11:05] VITALS: BP 120/82; PULSE 84; RESP 16; TEMP 98.5; BMI 19.8
== END 2024-06-28 11:21 | disposition home or self-care (01) ==
LOC: FER 10:31
DX: M76.62 Achilles tendinitis, left leg (principal); M79.672 Pain in left foot
CPT/HCPCS: 99283-25

== ENCOUNTER 2025-04-08 15:24 | Emergency (ER) | payer OTHER ==
[2025-04-08 15:42] VITALS: BP 139/84; PULSE 88; RESP 16; TEMP 98.1; BMI 19.8
== END 2025-04-08 17:35 | disposition home or self-care (01) ==
LOC: FER 15:24
DX: S00.83XA Contusion of other part of head, initial encounter (principal); X58.XXXA Exposure to other specified factors, initial encounter
CPT/HCPCS: 70450-TC; 99284-25

== ENCOUNTER 2025-09-04 12:26 | Emergency (ER) | payer OTHER ==
[2025-09-04 12:38] VITALS: BP 129/87; PULSE 78; RESP 15; TEMP 98.4; BMI 19.8
[2025-09-04] MEDS ORDERED: TOBRAMYCIN/DEXAMETHASONE OPHTH. OINTMENT 1 TUBE ONE (12:44)
[2025-09-04] MEDS: TOBRAMYCIN/DEXAMETHASONE OPHTH. OINTMENT 1 TUBE OD ONE (12:50)
== END 2025-09-04 13:18 | disposition home or self-care (01) ==
LOC: FER 12:26
DX: H10.9 Unspecified conjunctivitis (principal)
CPT/HCPCS: 99283-25